=== PATIENT | female | born 1990 | race African-American/Black ===

== ENCOUNTER 2020-12-29 17:25 | Observation (INO) | payer MEDICAID, SELFPAY ==
[2020-12-29] VITALS (9 sets, daily range): BP systolic 102–129; BP diastolic 66–79; PULSE 91–108
--- NOTE | 2020-12-30 07:19 | PM.OBTRLD ---
OB - Triage/Final Diagnosis Visit Information Date of evaluation: 12/29/20 Reason for evaluation: threatened labor ( labor) Comments/Additional reasons for admission: I have assessed the risk for this patient, Pilar Francisco, and determined that she would benefit from observation care. Evaluation Cervical dilation (cm): 3 Vital signs: Vital Signs - 24 hr 12/29/20 17:46 12/29/20 18:00 12/29/20 18:15 Pulse Rate 108 H 104 H 105 H Blood Pressure 124/71 115/71 105/76 12/29/20 18:30 12/29/20 18:45 12/29/20 19:00 Pulse Rate 100 101 H 97 Blood Pressure 102/66 117/72 121/70 12/29/20 19:15 12/29/20 19:30 12/29/20 19:45 Pulse Rate 99 95 91 Blood Pressure 129/79 125/70 124/75
== END 2020-12-29 19:57 | disposition left against medical advice (07) ==
PROVIDERS: Admitting Provider Student in an Organized Health Care Education/Training Program; Visit Provider Student in an Organized Health Care Education/Training Program
DX: O47.9 False labor, unspecified (principal); Z3A.00 Weeks of gestation of pregnancy not specified
CPT/HCPCS: G0378; G0379